=== PATIENT | female | born 1950 | race Caucasian/White ===

== ENCOUNTER 2021-04-26 11:41 | Outpatient (REF) | payer MEDICARE, MEDICAID, SELFPAY ==
[2021-04-26 12:09] LABS: Prothrombin Time 11.8 SEC (9.9-13.0)
[2021-04-26 13:13] LABS: Erythrocyte Sedimentation Rate 12 MM/HR (0-20)
[2021-04-27 03:52] LABS: Syphilis Screen Nonreactive (Nonreactive)
[2021-04-27 13:35] LABS: Lyme Abs Screen <0.90 index
[2021-04-28 12:51] LABS: Anti Nuclear Antibody Screen NEGATIVE (NEGATIVE)
== END 2021-04-26 11:42 | disposition home or self-care (01) ==
LOC: HO.LAB 11:41
PROVIDERS: PCP Physician Assistant; Visit Provider Psychiatry & Neurology Neurology
DX: G37.9 Demyelinating disease of central nervous system, unspecified (principal)
CPT/HCPCS: 36415; 85610; 85652; 86038; 86039; 86617; 86618; 86780

== ENCOUNTER 2022-02-08 16:24 | Emergency (ER) | payer MEDICARE, MEDICAID, SELFPAY ==
--- NOTE | ~2022-02-08 | XR_ITS ---
EXAMINATION: 1. LEFT WRIST. CLINICAL INFORMATION: Wrist pain. COMPARISON: None TECHNIQUE: 1. Left wrist. 4 views. FINDINGS: . No fracture. No dislocation. Joint spaces are normal. No soft tissue abnormality. XR/XR hand wrist LT IMPRESSION: Normal left wrist.
--- NOTE | ~2022-02-08 | XR_ITS ---
EXAMINATION: XR CHEST CLINICAL INFORMATION: Chest pain COMPARISON: None TECHNIQUE: Frontal view of the chest was obtained. FINDINGS: No significant abnormality is noted involving the heart, lungs, mediastinum, bony thorax or soft tissues. XR/XR chest 1V IMPRESSION: No acute cardiopulmonary findings.
--- NOTE | ~2022-02-08 | CT_ITS ---
EXAMINATION: CT HEAD WITHOUT CONTRAST CLINICAL INFORMATION: Left arm weakness. Pain. COMPARISON: None TECHNIQUE: Contiguous axial imaging was performed from the skull base to vertex without intravenous administration of contrast. Coronal and sagittal reformatted images are performed at CT scanner This CT examination was performed using dose optimization techniques as appropriate, variously including the following: *Automated exposure control *Adjustment of mA and/or kV according to patient size (this includes techniques or standardized protocols for targeted exams where dose is matched to indication/reason for exam; i.e. extremities or head) *Use of iterative reconstruction technique DLP: 622 mGy-cm FINDINGS: There is no evidence of acute intracranial hemorrhage or territorial infarction. No abnormal mass effect or midline shift is seen. Gandara to white matter differentiation is well preserved. No extra-axial fluid collections are identified. The ventricles are normal in size. There is no abnormal attenuation within the brain parenchyma. The osseous structures and soft tissues are normal. The mastoid air cells and visualized portions of the paranasal sinuses are well aerated. CT/CT head/brain wo con IMPRESSION: No acute intracranial pathology.
[2022-02-08 16:41] VITALS: BP 168/91; PULSE 90; RESP 16; TEMP 36.9; O2SAT 95; BMI 24.4
--- NOTE | 2022-02-08 16:53 | ECG_ITS ---
Test Reason : CX PAIN Blood Pressure : / mmHG Vent. Rate : 075 BPM Atrial Rate : 075 BPM P-R Int : 138 ms QRS Dur : 076 ms QT Int : 376 ms P-R-T Axes : 056 015 026 degrees QTc Int : 419 ms Normal sinus rhythm Nonspecific ST and T wave abnormality Abnormal ECG When compared with ECG of 01-DEC-2018 11:18, No significant change was found Referred By: Mayur Felix Electronically Signed By:RAMA JAY
--- NOTE | 2022-02-08 17:18 | ED_ITS ---
HPI - Chest Pain General Chief Complaint: Chest Pain Stated Complaint: chest pain l side numbness Time Seen by Provider: 02/08/22 16:53 Source: patient Mode of arrival: ambulatory Limitations: no limitations History of Present Illness HPI narrative: This is a 71-year-old female presenting to the emergency department with sudden- onset atraumatic left wrist pain that radiates up towards the shoulder into the chest and to her back. Patient tells me that the pain is so severe she cannot move her wrist or her shoulder. She reports that the chest pain is a constant pressure, localized to the left chest and rates it a 9/10. She reports that if she touches certain areas of her left upper extremity it causes pain to her entire arm and chest. Patient reports that this started suddenly after waking up around 05:00 and has not improved despite taking Tylenol. Patient tells me that about a week and half ago she woke up and her fingers were crossed and cramped together however that subsided on its own, she reached out to her PCP who told her to come in today as she may be having a stroke. Patient denies his tory of strokes, denies history of PE or DVT, and has no significant personal or family history of cardiac disease. Patient denies starting any new medications recently. She denies fevers, chills, nausea, vomiting, abdominal pain, shortness of breath, lower extremity pain or swelling, weakness. Patient does clarified that the reason she can not move her left upper extremity is mostly because of pain in not so much weakness. Related Data Home Medications Medication Instructions Recorded Confirmed acetaminophen 500 mg tablet 500 mg PO DAILY@14 02/08/22 02/08/22 amitriptyline 50 mg tablet 1 tab PO BEDTIME 02/08/22 02/08/22 Allergies Allergy/AdvReac Type Severity Reaction Status Date / Time amoxicillin [AMOXICILLIN] Allergy Unknown UNKNOWN Unverified 03/09/20 15:43 aspirin [ASA] Allergy Unknown UNKNOWN Unverified 03/09/20 15:43 fentanyl [FENTANYL] Allergy Unknown NAUSEA,TINGLING Unverified 03/09/20 15:43 LIPS () nitrofurantoin Allergy Unknown UNKNOWN Unverified 03/09/20 15:43 [NITROFURANTOIN] oxycodone Allergy Unknown vomiting Verified 03/02/19 00:00 varenicline [From CHANTIX] Allergy Unknown TACHYCARDIA Unverified 03/09/20 15:43 Review of Systems Review of Systems: Constitutional : No Weight loss, No Fever, No Chills, No Fatigue, No Malaise ENT/Mouth : No sore throat, No Rhinorrhea Eyes: No Eye Pain, No Swelling, No Redness Cardiovascular : No Chest Pain, No SOB, No Dyspnea on Exertion, No Orthopnea, No Edema, No Palpitations Respiratory : No Cough, No Sputum, No Wheezing Gastrointestinal : No Nausea, No Vomiting, No Diarrhea, No Constipation, No abdominal Pain, No Hematochezia, No Melena Genitourinary : No Dysuria, No Urinary Frequency, No Hematuria, Musculoskeletal : No joint pain, No Myalgias, No Joint Swelling Skin : No Skin Lesions, No rash Neuro : No Weakness, No Numbness, No Dizziness, No Headache Psych : No Anxiety/Panic, No Depression All other systems reviewed and are negative Yes all other systems are reviewed and are negative [facility] Past Medical History Attestation statement: The following information was validated with the patient. Source: old records reviewed and nursing notes reviewed Social History Social History Advance Directives: No Advance Directives Information Provided: Yes Physical Exam Vital Signs: Vital Signs: Last Vital Signs Temp 98.4 F 02/08/22 16:41 Pulse 90 02/08/22 16:41 Resp 16 02/08/22 16:41 BP 168/91 H 02/08/22 16:41 Pulse Ox 95 02/08/22 16:41 O2 Del Method 02/08/22 16:41 BMI result Body Mass Index 24.4 vss Appearance: Alert.? Oriented X3.? No acute distress.? Patient is speaking in full sentences, not slurring her speech. No dysarthria Head: Normocephalic, atraumatic, no step-offs or deformities. No facial droop. Eyes: Pupils equal, round and reactive to light.? Extraocular movements intact and pain-free. ENT: Pharynx normal.? Neck: Normal inspection.? Neck supple.? CVS: Normal heart rate and rhythm.? Pulses normal.? Respiratory: No respiratory distress.? Breath sounds normal.? Abdomen: Soft and nontender.? Skin: Skin warm and dry.? Normal skin color.? Normal skin turgor.? Extremities: No lower extremity edema.? No calf ttp. 5/5 strength to right upper and b/l lower extremities. Unable to accurately assess strength the left upper extremity as patient is in severe pain. Tells me she cannot shrug her left shoulder however is freely moving her elbow and wrist without difficulties. Normal right upper extremity. She is also moving all digits in the left hand. Patient has 2+ radial pulses equal bilateral. Normal hand rate and cost analyst bilaterally. Normal capillary is a bilateral upper extremity digits. Normal sensation. There is no upper extremity swelling noted or overlying skin changes. No wrist drop bilaterally. 2+ patellar reflexes equal bilateral to lower extremities Neuro: Oriented X 3.? No motor deficit.? No sensory deficit. CN 2-12 intact . Ambulating with steady gait. Normal [id number], [id number] Course Reevaluation(s) Reevaluation #1: CBC within normal limits. Chemistry with no acute electrolyte abnormalities requiring intervention. Troponin negative, EKG nonischemic. Ethanol negative. COVID negative. CT of the head and brain with no acute findings. Chest x-ray and x-ray of the hand pending at this time. Time: 18:47 Reevaluation #2: X-ray of the left wrist with no acute findings. Chest x-ray with no acute findings. Patient tells me that she thinks that this is her amitriptyline which was prescribed to her by her nerve doctor, she tells me she does not know her nerve doctor's name. She tells me that she knows our phone number. I explained to her that in the emergency department there is nothing that requires acute treatment her management. I told her that if she is concerned about her medications prescribed to her by her nerve doctor she can reach out to them she tells me she needs to speak to somebody about it today because she is very uncomfortable, I told her that most facilities have an on-call provider she can call and speak to however at this time I do not feel comfortable making medication changes to her chronic medications there is nothing to be done about this acutely in an emergency department. Patient requesting to leave and would not like further intervention however, her cardiac workup was benign, history and physical examination not consistent with PE. Unlikely that this is ACS. To know at time of discharge patient complaining of left arm pain however not complaining of chest pain or shortness of breath. At this time I feel comfortable discharge home. Time: 19:31 MDM - Chest Pain MDM Narrative Medical decision making narrative: [id number] 71-year-old female presenting to the emergency department with left wrist pain that radiates into her left shoulder, chest and. Reports it is severe pain which is causing her difficulties with moving left upper extremity. Physical examination significant for No lower extremity edema.? No calf ttp. 5/5 strength to right upper and b/l lower extremities. Unable to accurately assess strength the left upper extremity as patient is in severe pain. Tells me she cannot shrug her left shoulder however is freely moving her elbow and wrist without difficulties. Normal right upper extremity. She is also moving all digits in the left hand. Patient has 2+ radial pulses equal bilateral. Normal hand rate and cost analyst bilaterally. Normal capillary is a bilateral upper extremity digits. Normal sensation. There is no upper extremity swelling noted or overlying skin changes. No wrist drop bilaterally. 2+ patellar reflexes equal bilateral to lower extremities. Oriented X 3.? No motor deficit.? No sensory deficit. CN 2-12 intact . Ambulating with steady gait. Normal fjfwbg-nv-zoij, rkvu-zj-[id number]. NIH stroke scale - 0 Unlikley stroke, more likley musculoskeletal pain, nerve pain. Unlikely arterial or venous occlusion of the left upper extremity or DVT, there is no swelling appreciated, normal sensation and good pulses. Plan at this time is to obtain basic labs, EKG, chest x-ray, x-ray of the left wrist, urine, CONTRERAS. Medical Records Data Attestation: I reviewed the patient's medical records. Lab Data Attestation: I reviewed the patient's lab results. Result diagrams: 02/08/22 17:56 02/08/22 17:56 Labs: Lab Results 02/08/22 02/08/22 02/08/22 Range/Units 17:56 17:56 17:56 WBC 8.6 (4.8-10.8) X10*3/uL RBC 4.37 (4.20-5.50) X10*6/uL Hgb 13.3 (12.0-16.0) g/dl Hct 39.6 (37.0-47.0) % MCV 90.6 (80.0-98.0) fL MCH 30.4 (27.0-33.0) pg MCHC 33.6 (31.0-35.0) g/dl RDW 12.7 (11.0-16.0) % Plt Count 293 (160-400) X10*3/uL MPV 10.2 (9.4-12.3) fL Immature Gran % (Auto) 0.4 (0.0-0.4) % Neut % (Auto) 62.0 (45-73) % Lymph % (Auto) 25.2 (20-40) % Yell % (Auto) 6.4 (2-11) % Eos % (Auto) 5.3 H (0-4) % Baso % (Auto) 0.7 (0-2) % Lymph # (Auto) 2.2 (1.2-4.9) X10*3/uL Yell # (Auto) 0.6 (0.1-1.2) X10*3/uL Eos # (Auto) 0.5 H (0.0-0.4) X10*3/uL Baso # (Auto) 0.1 (0.0-0.2) X10*3/uL Abs Immat Gran (auto) 0.03 (0.00-0.03) X10*3/uL Absolute Neuts (auto) 5.3 (2.0-8.3) x10*3/uL Absolute Nucleated RBC 0.000 (0.0-0.012) X10*3/uL Nucleated RBC % (auto) 0.0 (0.0-0.2) /100WBC Sodium 140 (135-145) mmol/L Potassium 4.1 (3.3-5.1) mmol/L Chloride 105 (96-108) mmol/L Carbon Dioxide 25 (22-29) mmol/L Anion Gap 14 (12-20) BUN 16 (9-16) mg/dL Creatinine 0.78 (0.5-1.4) mg/dL Estim Creat Clear Calc 53.1 Estimated GFR > 60 Random Glucose 90 (60-115) mg/dL Calcium 9.6 (8.4-10.2) mg/dL Magnesium 2.1 (1.6-2.6) mg/dL Total Bilirubin 0.3 (0.0-1.0) mg/dL AST 18 (5-31) U/L ALT 13 (0-31) U/L Alkaline Phosphatase 96 (39-117) U/L Troponin I High Sens < 3.5 (<3.5-17.0) ng/L Total Protein 6.8 (6.5-8.0) g/dL Albumin 4.4 (3.5-5.0) g/dL Ethyl Alcohol < 10 mg/dL COVID-19 (GARY) (Negative) COVID-19 Clin Com 02/08/22 Range/Units 17:57 WBC (4.8-10.8) X10*3/uL RBC (4.20-5.50) X10*6/uL Hgb (12.0-16.0) g/dl Hct (37.0-47.0) % MCV (80.0-98.0) fL MCH (27.0-33.0) pg MCHC (31.0-35.0) g/dl RDW (11.0-16.0) % Plt Count (160-400) X10*3/uL MPV (9.4-12.3) fL Immature Gran % (Auto) (0.0-0.4) % Neut % (Auto) (45-73) % Lymph % (Auto) (20-40) % Yell % (Auto) (2-11) % Eos % (Auto) (0-4) % Baso % (Auto) (0-2) % Lymph # (Auto) (1.2-4.9) X10*3/uL Yell # (Auto) (0.1-1.2) X10*3/uL Eos # (Auto) (0.0-0.4) X10*3/uL Baso # (Auto) (0.0-0.2) X10*3/uL Abs Immat Gran (auto) (0.00-0.03) X10*3/uL Absolute Neuts (auto) (2.0-8.3) x10*3/uL Absolute Nucleated RBC (0.0-0.012) X10*3/uL Nucleated RBC % (auto) (0.0-0.2) /100WBC Sodium (135-145) mmol/L Potassium (3.3-5.1) mmol/L Chloride (96-108) mmol/L Carbon Dioxide (22-29) mmol/L Anion Gap (12-20) BUN (9-16) mg/dL Creatinine (0.5-1.4) mg/dL Estim Creat Clear Calc Estimated GFR Random Glucose (60-115) mg/dL Calcium (8.4-10.2) mg/dL Magnesium (1.6-2.6) mg/dL Total Bilirubin (0.0-1.0) mg/dL AST (5-31) U/L ALT (0-31) U/L Alkaline Phosphatase (39-117) U/L Troponin I High Sens (<3.5-17.0) ng/L Total Protein (6.5-8.0) g/dL Albumin (3.5-5.0) g/dL Ethyl Alcohol mg/dL COVID-19 ([facility]) Negative (Negative) COVID-19 Clin Com See Note Critical Care Time Critical Care Time Critical Care Time: No Discharge Plan Discharge Clinical Impression: Chest pain not due to acute coronary syndrome, Left upper arm pain Patient Disposition: Home, Self-Care Instructions: Chest Pain (ED), Chest Wall Pain (ED), Arm Pain (ED) Additional Instructions: Take your medications as prescribed. If you were prescribed antibiotics today, it is important that you take your medication to their entirety, do not skip any doses, do not finish them early. Follow-up with your primary care provider this week. Return to the emergency department with new or worsening symptoms. Such as fevers, chills, chest pain, shortness of breath, nausea, vomiting, dizziness, headache, vision changes, lethargy In case of emergency call 911 Please follow-up with your primary care provider and your med prescriber for amitriptyline Prescriptions: No Action amitriptyline 50 mg tablet 1 tab PO BEDTIME acetaminophen [Tylenol Ex Str Rapid Release] 500 mg Tablet 500 mg PO DAILY@14 Referrals: Physician,Unknown J [Primary Care Provider] - 2 days Stand Alone Forms: Against Medical Advice, Work/School Release
[2022-02-08 18:09] LABS: Basophils Absolute Auto 0.1 X10*3/uL (0.0-0.2); Basophils Percent Auto 0.7 % (0-2); Eosinophils Absolute Auto 0.5 X10*3/uL (0.0-0.4); Eosinophils Percent Auto 5.3 % (0-4); Hematocrit 39.6 % (37.0-47.0); Hemoglobin 13.3 g/dl (12.0-16.0); Imm Gran Abs Auto 0.03 X10*3/uL (0.00-0.03); Imm Gran Pct Auto 0.4 % (0.0-0.4); Lymphocytes Absolute Auto 2.2 X10*3/uL (1.2-4.9); Lymphocytes Percent Auto 25.2 % (20-40); MANUAL DIFF FLAG NO; Mean Corpuscular HGB Conc 33.6 g/dl (31.0-35.0); Mean Corpuscular Hemoglobin 30.4 pg (27.0-33.0); Mean Corpuscular Volume 90.6 fL (80.0-98.0); Mean Platelet Volume 10.2 fL (9.4-12.3); Monocytes Absolute Auto 0.6 X10*3/uL (0.1-1.2); Monocytes Percent Auto 6.4 % (2-11); Neutrophils Absolute Auto 5.3 x10*3/uL (2.0-8.3); Platelet Count 293 X10*3/uL (160-400); Red Blood Count 4.37 X10*6/uL (4.20-5.50); Red Cell Distribution Width 12.7 % (11.0-16.0); White Blood Count 8.6 X10*3/uL (4.8-10.8)
[2022-02-08 18:22] LABS: Alanine Aminotransferase 13 U/L (0-31); Albumin Level 4.4 g/dL (3.5-5.0); Alkaline Phosphatase 96 U/L (39-117); Anion Gap 14 (12-20); Aspartate Amino Transferase 18 U/L (5-31); Bilirubin Total 0.3 mg/dL (0.0-1.0); Blood Urea Nitrogen 16 mg/dL (9-16); Calcium 9.6 mg/dL (8.4-10.2); Carbon Dioxide 25 mmol/L (22-29); Chloride 105 mmol/L (96-108); Creatinine Clr Calc Pharmacy 53.1; Estimated Glomerular Filt Rate > 60; Ethanol < 10 mg/dL; Glucose Random 90 mg/dL (60-115); Magnesium 2.1 mg/dL (1.6-2.6); Potassium 4.1 mmol/L (3.3-5.1); Sodium 140 mmol/L (135-145); Total Protein 6.8 g/dL (6.5-8.0)
[2022-02-08 18:25] LABS: Troponin-I High Sensitivity < 3.5 ng/L (<3.5-17.0)
[2022-02-08 18:28] LABS: COVID-19 Test Negative (Negative)
--- NOTE | 2022-02-08 18:35 | PHA.MEDREC ---
Pharmacy Consult ? Medication Reconciliation Pharmacy has completed the medication reconciliation. Pt used to take 10 mg amitripyline and was able to take the white brand of pills but not the blue brand tablets. In November she was increased to 50 mg which are reddish brown. She questions if her symptoms are from this dose jump. She also takes vitamin C & D but did not know the doses to put on her list.
--- NOTE | 2022-02-08 19:00 | PC.NURSE ---
RN assumed care of patient at this time.
--- NOTE | 2022-02-08 19:15 | PC.NURSE ---
Patient requesting to leave at this time. Provider made aware. RN informed patient that we are waiting on a few results if she could wait a few. RN offered IV morphine but patient refused requesting Tylenol 3. Provider made aware.
--- NOTE | 2022-02-08 20:17 | PC.NURSE ---
Pt aggressive during discharge. fucking thanks for nothing . Verbalized d/c and encouraged to follow up with pcp in am. Pt ambulated to exit with steady gait. Skin p/w/d. airway patent.
== END 2022-02-08 20:18 | disposition home or self-care (01) ==
PROVIDERS: Physician Assistant; Emergency Provider Emergency Medicine
DX: R07.89 Other chest pain (principal); M62.81 Muscle weakness (generalized); R51.9 Headache, unspecified; M79.602 Pain in left arm; M25.532 Pain in left wrist; Z20.822 Contact with and (suspected) exposure to COVID-19; Z79.899 Other long term (current) drug therapy
CPT/HCPCS: 70450; 71045; 73110; 73130; 80053; 82077; 82550; 83735; 84484; 85025; 87635; 93005; 99283; 99284

== ENCOUNTER 2023-08-15 09:57 | Outpatient (REF) | payer MEDICARE, MEDICAID, SELFPAY ==
--- NOTE | ~2023-08-15 | MM_ITS ---
EXAMINATION: MM SCREENING DIGITAL BREAST TOMOSYNTHESIS, BILATERAL CLINICAL INFORMATION: Screening. Asymptomatic. COMPARISON: Mammography: This study is compared with prior exams dating back to 2009. TECHNIQUE: Digital breast tomosynthesis is performed in both the craniocaudal and mediolateral oblique views along with computer-aided detection (CAD). Synthesized 2D images are generated from the tomosynthesis. FINDINGS: There are scattered areas of fibroglandular density (ACR BI-RADS breast composition Category b). There are no significant masses, abnormal calcifications, or other abnormalities. MM/MM tomosynthesis screening BI IMPRESSION: No mammographic evidence of malignancy. ASSESSMENT: BI-RADS BI-RADS 1 - Negative RECOMMENDATION: Routine annual mammography screening. 1 year F/U This examination should not preclude the clinical evaluation of a suspicious palpable abnormality. This patient's information was entered into a reminder system with a target due date for their next mammogram.
== END 2023-08-15 09:58 | disposition home or self-care (01) ==
LOC: HO.MAMMO 09:57
PROVIDERS: PCP Student in an Organized Health Care Education/Training Program; Visit Provider Student in an Organized Health Care Education/Training Program
DX: Z12.31 Encounter for screening mammogram for malignant neoplasm of breast (principal)
CPT/HCPCS: 77063; 77067

== ENCOUNTER → 2023-08-15 10:30 | Outpatient (BNV) | payer MEDICARE, MEDICAID, SELFPAY | PROVIDERS: PCP Student in an Organized Health Care Education/Training Program; Visit Provider Radiology Diagnostic Radiology | DX: Z12.31 Encounter for screening mammogram for malignant neoplasm of breast (principal) | CPT/HCPCS: 77063; 77067 ==

== ENCOUNTER 2024-09-10 11:56 | Outpatient (REF) | payer MEDICARE, MEDICAID, SELFPAY ==
--- OUTSIDE RECORDS SUMMARY | 2024-09-10 14:33 | XMS_ITS | Clinical Summary ---
Author Organization [facility] Address [address] [place] [address] Phone Care Team Providers Care Baccarat Manager Name Role Phone Olya Rosen MD Primary Care Provider [phone] Allergies Active Allergy Reactions Criticality Noted Date Comments Amoxicillin 12/29/2019 Aspirin Dermatitis,Rash 12/29/2019 Duloxetine 03/25/2024 Duloxetine Hcl Nausea And Vomiting 12/31/2019 Fentanyl 12/29/2019 Nitrofurantoin Monohyd/M-Cryst 12/28 Medications calcium carbonate-cholec alciferol (Calcium 500 + D) 500 mg-10 mcg (400 unit) per tablet Take 1 Tablet by mouth 2 times daily. 08/21/2023 Active turmeric root extract 500 mg capsule Take 400 mg by mouth 2 times daily. Active ascorbic acid (VITAMIN C) 250 MG chewable tablet Take 1 Tablet by mouth 2 times daily. Active pantoprazole (PROTONIX) 40 mg EC tablet Take 1 tablet (40 mg total) by mouth 1 (one) time each day. Do not crush, chew, or split. 90 each 1 08/20/2024 Active solifenacin (VESICARE) 10 mg tablet 08/26/2024 Active solifenacin (VESICARE) 5 mg tablet Take 1 tablet (5 mg total) by mouth 1 (one) time each day. 12/28/2023 Active tiZANidine (ZANAFLEX) 4 mg tablet Take 1 tablet (4 mg total) by mouth 2 (two) times a day. 01/27/2024 Active Active Problems Problem Noted Date Diagnosed Date Urinary incontinence 08/21/2023 Low vitamin D level 07/29/2022 Prediabetes 07/29/2022 Pain in left arm 03/07/2022 Overview (03/25/2024): Last Assessment & Plan: Patient already diagnosed with fibromyalgia. She already following with Dr. Roman Currently on amitriptyline Plan Continue same dose of amitriptyline. Thoracic neuralgia 07/10/2020 Overview (03/25/2024): Following with neuro Dr. Paulino at [facility] Last Assessment & Plan: Patient already diagnosed with thoracic neuralgia She is following with Dr. Paulino, last visit yesterday. Is getting amitriptyline. Plan continue the same dose of amitriptyline. Vitamin D insufficiency 03/26/2020 Pelvic pressure in female 03/20/2020 Overview (03/25/2024): Last Assessment & Plan: Recommended she have urine studies and Audio Video Technician ultrasound, although the Audio Video Technician organs appeared normal on CT and does not seem to be low enough to be Audio Video Technician in etiology. She will schedule her US and stop at lab for urine today. Osteoporosis 03/13/2020 Closed wedge compression fra cture of eighth thoracic vertebra 03/05/2020 Overview (03/25/2024): Xray 02/2020 Cervical disc disease 12/31/2019 Chronic abdominal pain 12/31/2019 Chronic pain disorder 12/31/2019 Diverticulosis 12/31/2019 Fibromyalgia 12/31/2019 GERD (gastroesophageal reflux disease) 0 Hypercholesterolemia 12/31/2019 Positive colorectal cancer screening using Colog uard test 12/31/2019 Tobacco use disorder 12/31/2019 Encounters Date Type Department Care Team Description 08/27/2024 2:40 PM EST Consult Gastroenterology [facility] [address] [place] [phone] Marcia Whyte NP Dyspepsia (Primary Dx); Tobacco use disorder; Chronic right upper quadrant pain; History of adenomatous polyp of colon 08/27/[address] [facility] [address] [place] [phone] Marcia Whyte NP 08/20/2024 10:00 AM EST Office Visit Internal Medicine - [facility] [address] [place] [address] Olya Rosen MD Routine general medical examination at a health care facility (Primary Dx); Medicare annual wellness visit, subsequent; Osteoporosis, unspecified osteoporosis type, unspecified pathological fracture presence; Hypercholesterolemia; Chronic abdominal pain; Fibromyalgia; Low vitamin D level; Prediabetes; Tobacco use disorder; Gastroesophageal reflux disease, unspecified whether esophagitis present; H. pylori infection; Other fatigue; Vitamin D deficiency; UTI symptoms from Last 3 Months Immunizations Name Administration Dates Next Due Pfizer SARS-CoV-2 COVID-19, mRNA, LNP-S, preservative free 11/01/2020,10/04/2020 Surgical History Surgery Date Site/Laterality Comments CHOLECYSTECTOMY 12/30/2018 PROCEDURE: LAPAROSCOPY, CHOLECYSTECTOMY NECK SURGERY PROCEDURE: HISTORICAL NECK SURGERY; COMMENT: per pt report, 1990s for cervical disc Family History Medical History Relation Name Comments Other: blood disorder Father hyperc oagulation Colon cancer Maternal Grandmother Colon cancer Mother metastatic Other: blood disorder Sister 1 hyperc oagulation 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 Sister 2 Relation Name Status Comments Father Alive Maternal Grandmother Mother Sister 1 Sister 2 Social History Tobacco Use Types Packs/Day Years Used Date Smoking Tobacco: Some Days Cigarettes Smokeless Tobacco: Current Alcohol Use Standard Drinks/Week Comments No 0 (1 standard drink = 0.6 oz pur e alcohol) Comments Unknown Sex and Gender Information Value Date Recorded Sex Assigned at Not on file Legal Sex Female 11:22 AM EST Gender Identity Not on file Sexual Orientation Not on file Obstetrics History Last Filed Vital Signs Vital Sign Reading Time Taken Comments Blood Pressure 118/75 08/27/2024 2:24 PM EST Pulse 97 08/20/2024 10:33 AM EST Temperature - - Respiratory Rate 14 05/04/2024 3:16 PM EST Oxygen Saturation 98% 08/20/2024 10:33 AM EST Inhaled Oxygen Concentration - - Weight 63 kg (139 lb) 08/27/2024 2:24 PM EST Height 160 cm (5' 3 ) 08/27/2024 2:24 PM EST Body Mass Index 24.62 08/27/2024 2:24 PM EST Plan of Treatment Upcoming Encounters Date Type Department Care Team (Late st Contact Info) Description 09/16/2024 8:45 AM EDT Office Visit Urogynecology [address] [phone] Karli Sinha MD [address] [facility] [address] [place] [address] 02/17/2025 9:00 AM EDT Office Visit Internal Medicine - [facility] [address] [place] [address] Olya Rosen MD [address] [facility] [address] [place] [address] Health Maintenance Due Date Last Done Comments DTaP,Tdap,and Td Vaccines (1 - Tdap) 09/10/1967 Pneumococcal Vaccine: 50+ Years (1 of 2 - PCV) 09/10/1967 Zoster Vaccines (1 of 2) 1998 Hepatitis C Screening 06/01/2022 Colorectal Cancer Screening: Colonoscopy 01/30/2023 01/31/2020 RSV Immunization Patients 60 + Years Old (1 - 1-dose 75+ series) 09/10/2023 COVID-19 Vaccine (2023-2 5 season) 2024 11/01/2020, 10/04/2020 Influenza Vaccine (#1) 2024 Lung Cancer Screening (Low Dose CT) 11/04/2024 11/05/2023 Depression Screening 08/20/2025 08/20/2024, 08/21/2023 Falls Risk Assessment 08/20/2025 08/20/2024 , 08/21/2023 Medicare Annual Wellness Visit 08/20/2025 08/20/2024 Social Influencers of Health Screening 08/20/2025 08/20/2024 Cholesterol Screening (Lipid Panel) 08/20/2029 08/20/2024, 08/21/2023 Osteoporosis Screening (Bone Density Screening) 03/07/2030 03/07/2020 HIB Vaccines Aged Out No longer eligi ble based on patient's age to complete this topic HPV Vaccines Aged Out No longer eligi ble based on patient's age to complete this topic Hepatitis A Vaccines Aged Out No long er eligible based on patient's age to complete this topic Hepatitis B Vaccines Aged Out No long er eligible based on patient's age to complete this topic IPV Vaccines Aged Out No longer eligi ble based on patient's age to complete this topic MMR Vaccines Aged Out No longer eligi ble based on patient's age to complete this topic Meningococcal ACWY Vaccine Aged Out N o longer eligible based on patient's age to complete this topic Meningococcal B Vacine Aged Out No lo nger eligible based on patient's age to complete this topic RSV Immunization Patients Under 20 months Aged Out No longer eligible b ased on patient's age to complete this topic Varicella Vaccines Aged Out No longer eligible based on patient's age to complete this topic Procedures Procedure Name Priority Date/Time Associated Diagnosis Comments HELICOBACTER PYLORI ANTIGEN, STOOL Routine 08/27/2024 11:47 AM EST H. pylori infection GANDARA URINE CULTURE TUBE Routine 08/20/2024 12:44 PM EST UTI symptoms URINALYSIS WITH REFLEX MICROSCOPIC AND CULTURE Routine 08/20/2024 11:41 AM EST UTI symptoms CBC WITH AUTO DIFFERENTIAL Routine 08/20/2024 11:41 AM EST Medicare annual wellness visit, subsequent Other fatigue URINALYSIS WITH REFLEX MICROSCOPIC AND CULTURE Routine 08/20/2024 11:41 AM EST UTI symptoms THYROID STIMULATING HORMONE WITH REFLEX TO FREE T4 AND FREE T3 Routine 08/20/2024 11:41 AM EST Medicare annual wellness visit, subsequent Other fatigue VITAMIN D 25 HYDROXY Routine 08/20/2024 11:41 AM EST Medicare annual wellness visit, subsequent Vitamin D deficiency LIPID PANEL WITH REFLEX TO DIRECT LDL Routine 08/20/2024 11:41 AM EST Medicare annual wellness visit, subsequent Hypercholesterolemi a COMPREHENSIVE METABOLIC PANEL Routine 08/20/2024 11:41 AM EST Medicare annual wellness visit, subsequent VITAMIN B12 Routine 08/20/2024 11:41 AM EST Medicare annual wellness visit, subsequent Other fatigue HEMOGLOBIN A1C Routine 08/20/2024 11:41 AM EST Medicare annual wellness visit, subsequent Prediabetes CBC AND DIFFERENTIAL Routine 08/20/2024 11:41 AM EST Medicare annual wellness visit, subsequent Other fatigue CT LUNG SCREENING LOW DOSE Routine 11/05/2023 2:48 PM EDT Encounter for screening for malignant neoplasm of respiratory organs DEPRESSION SCREENING Routine 08/21/2023 FALLS RISK ASSESSMENT Routine 08/21/2023 DXA BONE DENSITY STUDY 1+ SITS AXIAL SKEL Routine 03/07/2020 3:04 PM EDT Wedge compression fracture of T7-T8 vertebra, initial encounter for closed fracture ([facility]) COLONOSCOPY Routine 01/31/2020 from Last 3 Months or Most Recently Relevant to Health Maintenance Results * Helicobacter pylori antigen, stool (08/27/2024 11:47 AM EST) Helicobacter Pylori Ag Not detected Not detected 08/31/2024 2:37 PM EDT [facility] Comment: This test was performed at [facility] using a chemiluminescent immunoassay intended for the qualitative determination of helicobacter pylori (H. pylori) antigen in human stool. The test is an aid in the diagnosis of patients suspected of H. pylori infection and to measure post therapy response from patients. Assay results should be used in conjunction with other clinical and laboratory data to assist the clinician in making individual patient management decisions. A negative test result does not preclude the possibility of the presence of H. pylori antigen in the specimen, which may occur if the level of antigen is below the detection limit of the test. Antimicrobials, proton pump inhibitors, and bismuth preparations are known to suppress H. pylori and, if ingested, may give a false negative result. In these cases a new fecal sample should be collected and tested 14 days after treatment has stopped. Positive results from patients that have used antibiotics, PPIs, or bismuth compounds in the 14 days prior to fecal sample collection are still considered accurate. This assay has not been evaluated in a pediatric population. This test has been approved as an in vitro diagnostic by the [place] Food and Drug Administration. Test performed at [facility], [address] , [place], [place] ??[address] ? [phone] Michell Hadley MD, PhD - Editorial Assistant Stool Rectum structure / Unknown Non-blood Collection / Unknown 08/27/2024 11:47 AM EST 08/27/2024 11:47 AM EST Olya Rosen MD LAB BODY FLUIDS AND STOOLS ORDER GALO Final Result Performing Organization Address City/[facility]/ZIP Co de Phone Number [facility] [address] [place] [address] * Gandara urine culture tube (08/20/2024 12:44 PM EST) Pathologist [facility] Extra Tube Hold for add-ons. 08/20/2024 3:02 PM EST [facility] Comment:Auto resulted. Urine Urine specimen obtained by clean catch procedure / Unknown Non-blood Collection / Unknown 08/20/2024 12:44 PM EST 08/20/2024 12:44 PM EST Olya Rosen MD LAB URINE ORDERABLES Final Resul t Performing Organization Address City/[facility]/ZIP Co de Phone Number [facility] [address] [place] [address], [place] [phone] * Urinalysis with reflex microscopic and culture (08/20/2024 11:41 AM EST) Pathologist [facility] Specific Crawford Urine 1.015 1.003 - 1.030 LAB URINALYSIS - AUTOMATED METHOD 08/20/2024 2:22 PM EST [facility] pH, Urine 7.0 5.0 - 8.0 pH LAB URINALYSIS - AUTOMATED METHOD 08/20/2024 2:22 PM [facility] Leukocytes, Urine Negative Negative LAB URINALYSIS - AUTOMATED METHOD 08/20/2024 2:22 PM [facility] Nitrite, Urine Negative Negative LAB URINALYSIS - AUTOMATED METHOD 08/20/2024 2:22 PM [facility] Protein, Urine Negative <=Trace mg/dL LAB URINALYSIS - AUTOMATED METHOD 08/20/2024 2:22 PM [facility] Glucose, Urine Negative Negative mg/dL LAB URINALYSIS - AUTOMATED METHOD 08/20/2024 2:22 PM [facility] Ketones, Urine Negative Negative mg/dL LAB URINALYSIS - AUTOMATED METHOD 08/20/2024 2:22 PM [facility] Urobilinogen, Urine 0.2 0.2 - 1.0 mg/dL LAB URINALYSIS - AUTOMATED METHOD 08/20/2024 2:22 PM [facility] Bilirubin, Urine Negative Negative LAB URINALYSIS - AUTOMATED METHOD 08/20/2024 2:22 PM [facility] Blood, Urine Negative Negative LAB URINALYSIS - AUTOMATED METHOD 08/20/2024 2:22 PM [facility] Urine Urine specimen obtained by clean catch procedure / Unknown Non-blood Collection / Unknown 08/20/2024 11:41 AM EST 08/20/2024 11:41 AM EST us Olya Rosen MD LAB URINE ORDERABLES Final Resul t [facility] [address] [place] [address], * Thyroid stimulating hormone with reflex to free t4 and free t3 (08/20/2024 11:41 AM EST) TSH 2.40 0.40 - 4.00 mcIU/mL LAB CHEMISTRY METHOD 08/20/2024 7:46 PM EST [facility] Blood Venous blood specimen / Unknown Venipuncture / Unknown 08/20/2024 11:41 AM EST 08/20/2024 11:41 AM EST Olya Rosen MD LAB BLOOD ORDERABLES Final Resul t Performing Organization Address City/[facility]/ZIP Co de Phone Number [facility] [address] [place] [address], [place] [phone] * (ABNORMAL) Lipid panel with reflex to direct LDL (08/20/2024 11:41 AM EST) Cholesterol 254(H) 0 - 200 mg/dL LAB CHEMISTRY METHOD 08/20/2024 8:07 PM [facility] Triglycerides 295(H) 0 - 150 mg/dL LAB CHEMISTRY METHOD 08/20/2024 8:07 PM [facility] HDL 44 >=40 mg/dL LAB CHEMISTRY METHOD 08/20/2024 8:07 PM [facility] LDL Calculated 151(H) 0 - 100 mg/dL LAB CHEMISTRY METHOD 08/20/2024 8:07 PM [facility] VLDL Cholesterol Lit 59 mg/dL LAB CHEMISTRY METHOD 08/20/2024 8:07 PM [facility] Non HDL Chol. (LDL+VLDL) 210(H) <145 mg/dL LAB CHEMISTRY METHOD 08/20/2024 8:07 PM [facility] Chol/HDL Ratio 5.8(H) 0.0 - 4.4 LAB CHEMISTRY METHOD 08/20/2024 8:07 PM [facility] Blood Venous blood specimen / Unknown Venipuncture / Unknown 08/20/2024 11:41 AM EST 08/20/2024 11:41 AM EST Olya Rosen MD LAB BLOOD ORDERABLES Final Resul t [facility] [address] [place] [address], * (ABNORMAL) CBC auto differential (08/20/2024 11:41 AM EST) [facility] Signature WBC 11.0(H) 4.8 - 10.8 K/mcL LAB HEMETOLOGY METHOD 08/20/2024 2:46 PM EST [facility] RBC 4.80 3.80 - 4.80 M/mcL LAB HEMETOLOGY METHOD 08/20/2024 2:46 PM EST [facility] Hemoglobin 14.6 11.5 - 16.0 g/dL LAB HEMETOLOGY METHOD 08/20/2024 2:46 PM [facility] Hematocrit 46.4 35.0 - 47.0 % LAB HEMETOLOGY METHOD 08/20/2024 2:46 PM [facility] MCV 96.1 79.0 - 98.0 FL LAB HEMETOLOGY METHOD 08/20/2024 2:46 PM [facility] MCH 30.2 27.0 - 32.0 pcg LAB HEMETOLOGY METHOD 08/20/2024 2:46 PM [facility] MCHC 31.5(L) 32.0 - 37.0 g/dL LAB HEMETOLOGY METHOD 08/20/2024 2:46 PM EST [facility] RDW 13.1 11.0 - 15.0 % LAB HEMETOLOGY METHOD 08/20/2024 2:46 PM [facility] Platelets 327 130 - 400 K/mcL LAB HEMETOLOGY METHOD 08/20/2024 2:46 PM [facility] MPV 11.0 7.0 - 11.0 FL LAB HEMETOLOGY METHOD 08/20/2024 2:46 PM [facility] NRBC 0.0 <1.0 % LAB HEMETOLOGY METHOD 08/20/2024 2:46 PM [facility] NRBC Absolute 0.00 <0.10 K/mcL LAB HEMETOLOGY METHOD 08/20/2024 2:46 PM [facility] Neutrophils Relative 63.8 % LAB HEMETOLOGY METHOD 08/20/2024 2:46 PM [facility] Lymphocytes Relative 25.0 % LAB HEMETOLOGY METHOD 08/20/2024 2:46 PM [facility] Monocytes Relative 6.2 % LAB HEMETOLOGY METHOD 08/20/2024 2:46 PM [facility] Eosinophils Relative 3.8 % LAB HEMETOLOGY METHOD 08/20/2024 2:46 PM [facility] Basophils Relative 0.5 % LAB HEMETOLOGY METHOD 08/20/2024 2:46 PM [facility] Immature Granulocytes Relative 0.7 % LAB HEMETOLOGY METHOD 08/20/2024 2:46 PM [facility] Neutrophils Absolute 7.00 1.50 - 7.00 K/mcL LAB HEMETOLOGY METHOD 08/20/2024 2:46 PM [facility] Lymphocytes Absolute 2.74 1.00 - 5.00 K/mcL LAB HEMETOLOGY METHOD 08/20/2024 2:46 PM [facility] Monocytes Absolute 0.68 0.20 - 1.00 K/mcL LAB HEMETOLOGY METHOD 08/20/2024 2:46 PM [facility] Eosinophils Absolute 0.42 0.00 - 0.50 K/mcL LAB HEMETOLOGY METHOD 08/20/2024 2:46 PM [facility] Basophils Absolute 0.05 0.00 - 0.20 K/mcL LAB HEMETOLOGY METHOD 08/20/2024 2:46 PM [facility] Immature Granulocytes Absolute 0.08(H) 0.00 - 0.03 K/mcL LAB HEMETOLOGY METHOD 08/20/2024 2:46 PM EST [facility] Blood Venous blood specimen / Unknown Venipuncture / Unknown 08/20/2024 11:41 AM EST 08/20/2024 11:41 AM EST Olya Rosen MD LAB BLOOD ORDERABLES Final Resul t Performing Organization Address City/[facility]/ZIP Co de Phone Number [facility] [address] [place] [address], [place] [phone] * (ABNORMAL) Vitamin D 25 hydroxy (08/20/2024 11:41 AM EST) Vit D, 25-Hydroxy 28.0(L) 30.0 - 80.0 ng/mL LAB CHEMISTRY METHOD 08/20/2024 7:46 PM EST [facility] Blood Venous blood specimen / Unknown Venipuncture / Unknown 08/20/2024 11:41 AM EST 08/20/2024 11:41 AM EST us Olya Rosen MD LAB BLOOD ORDERABLES Final Resul t Performing Organization Address [facility] Co de Phone Number [facility] [address] [place] [address], [place] [phone] * Hemoglobin A1c (08/20/2024 11:41 AM EST) Pathologist [facility] Hemoglobin A1C 6.3 <6.5 % LAB CHEMISTRY METHOD 08/23/2024 9:36 PM EST [facility] Mean Bld Glu Estim. 134 mg/dL LAB CHEMISTRY METHOD 08/23/2024 9:36 PM EST [facility] Blood Venous blood specimen / Unknown Venipuncture / Unknown 08/20/2024 11:41 AM EST 08/20/2024 11:41 AM EST us Olya Rosen MD LAB BLOOD ORDERABLES Final Resul t [facility] [address] [place] [address], [place] [phone] * Vitamin B12 (08/20/2024 11:41 AM EST) [facility] Vitamin B-12 546 250 - 900 pcg/mL LAB CHEMISTRY METHOD 08/20/2024 8:07 PM [facility] Blood Venous blood specimen / Unknown Venipuncture / Unknown 08/20/2024 11:41 AM EST 08/20/2024 11:41 AM EST Olya Rosen MD LAB BLOOD ORDERABLES Final Resul t Performing Organization Address [facility] Co de Phone Number [facility] [address] [place] [address], [place] [phone] * (ABNORMAL) Comprehensive metabolic panel (08/20/2024 11:41 AM EST) [facility] Sodium 139 133 - 145 mmol/L LAB CHEMISTRY METHOD 08/20/2024 8:07 PM [facility] Potassium 4.3 3.5 - 5.5 mmol/L LAB CHEMISTRY METHOD 08/20/2024 8:07 PM [facility] Chloride 103 96 - 110 mmol/L LAB CHEMISTRY METHOD 08/20/2024 8:07 PM [facility] CO2 29 21 - 32 mmol/L LAB CHEMISTRY METHOD 08/20/2024 8:07 PM [facility] Anion Gap 7 3 - 11 LAB CHEMISTRY METHOD 08/20/2024 8:07 PM [facility] Glucose 132(H) 70 - 100 mg/dL LAB CHEMISTRY METHOD 08/20/2024 8:07 PM [facility] BUN 18 5 - 25 mg/dL LAB CHEMISTRY METHOD 08/20/2024 8:07 PM [facility] Creatinine 0.82 0.50 - 1.10 mg/dL LAB CHEMISTRY METHOD 08/20/2024 8:07 PM [facility] eGFR 75 >=60 mL/min/1. 73m2 LAB CHEMISTRY METHOD 08/20/2024 8:07 PM [facility] Comment:Calculation based on the??Chronic Kidney Disease Epidemiology Collaboration (CKD-EPI) equation refit??without adjustment for race. BUN/Creatinine Ratio 22.0 LAB CHEMISTRY METHOD 08/20/2024 8:07 PM [facility] Calcium 10.1 8.5 - 10.5 mg/dL LAB CHEMISTRY METHOD 08/20/2024 8:07 PM [facility] AST (SGOT) 31 10 - 42 unit/L LAB CHEMISTRY METHOD 08/20/2024 8:07 PM [facility] ALT (SGPT) 44 10 - 60 unit/L LAB CHEMISTRY METHOD 08/20/2024 8:07 PM [facility] Alkaline Phosphatase 103 42 - 121 unit/L LAB CHEMISTRY METHOD 08/20/2024 8:07 PM [facility] Total Protein 7.2 6.0 - 8.0 g/dL LAB CHEMISTRY METHOD 08/20/2024 8:07 PM [facility] Albumin 4.2 3.2 - 5.0 g/dL LAB CHEMISTRY METHOD 08/20/2024 8:07 PM [facility] Total Bilirubin 0.5 0.0 - 1.4 mg/dL LAB CHEMISTRY METHOD 08/20/2024 8:07 PM [facility] Blood Venous blood specimen / Unknown Venipuncture / Unknown 08/20/2024 11:41 AM EST 08/20/2024 11:41 AM EST us Olya Rosen MD LAB BLOOD ORDERABLES Final Resul t [facility] [address] [place] [address], * CT LUNG SCREENING LOW DOSE (11/05/2023 2:48 PM EDT) Anatomical Region Laterality Modality Computed Tomogra phy 11/05/2023 11:2 5 AM EDT Narrative 11/05/2023 2:48 PM EDT [facility] Diagnostic Imaging Department [address] [place] [id number] Patient: ??RAMONARON ?/Age/Sex: 1950 - 73 - F Unit#: ??[id number] ? Location/Status: ??SPDICATLS/REG CLI ? Mnemonic/Ordering Site: ??CTLUNGLD/SPCT Ordering Physician: ??CHRISTIAN FERRARA MD CT Lung Screening Low Dose - 11/05/23 - 1133 Report Status:Signed PROCEDURE: Chest CT INDICATION: Low dose lung cancer screening, current smoker, 60 pack year smoking history. TECHNIQUE: Chest CT without contrast. Multi planar reformats were created and interpreted. The examination was performed utilizing dose reduction techniques. Total DLP 180 COMPARISON: ??No priors available. FINDINGS: LUNGS/PLEURA: Central airways are patent. ??Emphysema. ??3 mm nodule in the right middle lobe (series 4 image 74). ??4 mm nodule in the right lower lobe (series 4 image 97). ??Scattered smaller nodules throughout the lungs without suspicious nodule. ??No pleural effusion or pneumothorax. MEDIASTINUM: Thyroid gland is unremarkable. No mediastinal or hilar lymphadenopathy. Cardiac chambers are normal in size. No pericardial effusion. Mild coronary calcifications. ??Esophagus is normal. CHEST WALL: No axillary lymphadenopathy or superficial hematoma. UPPER ABDOMEN:Cholecystectomy. BONES: No acute fracture. Scattered degenerative changes seen throughout the bones. IMPRESSION: No suspicious pulmonary nodules. ??Lung RADS 2-benign. ??Recommend continued screening with low-dose chest CT in 12 months. Dictating Physician: ??ZACHARY CONNOLLY MD Electronically Signed by: ??ZACHARY CONNOLLY MD Dic Date/Time: ??11/05/23 1428 Sign date/Time: ??11/05/23 1447 Procedure Note Zachary Connolly MD - 02/09/2024 [facility] Diagnostic Imaging Department [address] [place] [address] Patient: RON GREENE /Age/Sex: 1950 - 73 - F Unit#: [id number] Location/Status: [facility] Mnemonic/Ordering Site: [facility] Ordering Physician: CHRISTIAN FERRARA MD CT Lung Screening Low Dose - 11/05/23 - 1133 Report Status:Signed PROCEDURE: Chest CT INDICATION: Low dose lung cancer screening, current smoker, 60 pack year smoking history. TECHNIQUE: Chest CT without contrast. Multi planar reformats were createdand interpreted. The examination was performed utilizing dose reductiontechniques. Total DLP 180 COMPARISON: No priors available. FINDINGS: LUNGS/PLEURA: Central airways are patent. Emphysema. 3 mm nodule in theright middle lobe (series 4 image 74). 4 mm nodule in the right lower lobe(series 4 image 97). Scattered smaller nodules throughout the lungs withoutsuspicious nodule. No pleural effusion or pneumothorax. MEDIASTINUM: Thyroid gland is unremarkable. No mediastinal or hilar lymphadenopathy. Cardiac chambers are normal in size. No pericardialeffusion. Mild coronary calcifications. Esophagus is normal. CHEST WALL: No axillary lymphadenopathy or superficial hematoma. UPPER ABDOMEN:Cholecystectomy. BONES: No acute fracture. Scattered degenerative changes seen throughoutthe bones. IMPRESSION: No suspicious pulmonary nodules. Lung RADS 2-benign. Recommendcontinued screening with low-dose chest CT in 12 months. Dictating Physician: ZACHARY CONNOLLY MD Electronically Signed by: ZACHARY CONNOLLY MD Dic Date/Time: 11/05/23 1428 Sign date/Time: 11/05/23 1448 Christian Ferrara MD IMG CT PROCEDURES Final Result * Falls Risk Assessment (08/21/2023) Pathologist [facility] Falls Risk Assessment abstracted Historical Provider HEALTH MAINTENANCE Final Result * Depression Screening (08/21/2023) Pathologist [facility] Depression Screening abstracted Historical Provider HEALTH MAINTENANCE Final Result * DXA BONE DENSITY STUDY 1+ [facility] (03/07/2020 3:04 PM EDT) Anatomical Region Laterality Modality Bone Densitometr y 03/06/2020 12:2 7 PM EDT Narrative 03/07/2020 5:20 PM EDT BONE DENSITY (DEXA) ? Lumbar Spine T-score is 0.6. ?? (SD relative to 20-29 y/o adult) Z-score is 2.8. ??(SD relative to age matched peers) This is considered normal by WHO criteria. Left Hip T-score is -1.8. Z-score is 0.1. This is considered osteopenia by WHO criteria. Lateral view of the spine shows mild wedging of the T8 vertebral body IMPRESSION: In the absence of trauma, compression fracture of a vertebral body is considered presumptive evidence of osteoporosis. The [facility] Department of Internal Medicine recommends using National Osteoporosis Foundation (NOF) guidelines in treatment decisions related to osteoporosis. NOF guidelines suggest considering treatment for postmenopausal women and men aged 50 or older presenting with the following: History of hip or vertebral fracture. T-score = -2.5 (DXA) at the femoral neck, total hip, or spine, after appropriate evaluation to exclude secondary causes. Low bone mass (T-score between -1.0 and -2.5 at the femoral neck or spine) AND a 10-year probability of a hip fracture = 3% OR a 10-year probability of a major osteoporosis-related fracture = 20% based on the [place]-adapted WHO algorithm Please note that all treatment decisions require clinical judgment and consideration of individual patient factors, including patient preferences, co-morbidities, previous drug use, risk factors not captured in the FRAX model (e.g., frailty, falls, vitamin D deficiency, increased bone turnover, interval significant decline in bone density) and possible under- or over-estimation of fracture risk by FRAX. Optional alternative screening schedule based on papo Toscano., [facility] July 11, 2011 for patients with osteopenia (based on hip BMD T-score) is as follows: * ??advanced osteopenia (T scores -2.00 to -2.49), BMD testing every year * ??moderate osteopenia (T scores -1.50 to -1.99), BMD testing every 5 years mild osteopenia or normal BMD (T scores -1.50 and higher), BMD testing every 15 years Procedure Note Radha Valdez MD - 06/11/2022 BONE DENSITY (DEXA) Lumbar Spine T-score is 0.6. (SD relative to 20-29 y/o adult) Z-score is 2.8. (SD relative to age matched peers) This is considered normal by WHO criteria. Left Hip T-score is -1.8. Z-score is 0.1. This is considered osteopenia by WHO criteria. Lateral view of the spine shows mild wedging of the T8 vertebral body IMPRESSION: In the absence of trauma, compression fracture of a vertebral body isconsidered presumptive evidence of osteoporosis. The [facility] Department of Internal Medicine recommendsusing National Osteoporosis Foundation (NOF) guidelines in treatment decisions related toosteoporosis. NOF guidelines suggest considering treatment for postmenopausal women and menaged 50 or older presenting with the following: History of hip or vertebral fracture. T-score = -2.5 (DXA) at the femoral neck, total hip, or spine, afterappropriate evaluation to exclude secondary causes. Low bone mass (T-score between -1.0 and -2.5 at the femoral neck or spine)AND a 10-year probability of a hip fracture = 3% OR a 10-year probability of a majorosteoporosis-related fracture = 20% based on the [place]-adapted WHO algorithm Please note that all treatment decisions require clinical judgment andconsideration of individual patient factors, including patient preferences, co- morbidities,previous drug use, risk factors not captured in the FRAX model (e.g., frailty, falls, vitaminD deficiency, increased bone turnover, interval significant decline in bone density) andpossible under- or over-estimation of fracture risk by FRAX. Optional alternative screening schedule based on papo Toscano., [facility] for patients with osteopenia (based on hip BMD T-score) is as follows: * advanced osteopenia (T scores -2.00 to -2.49), BMD testing every year * moderate osteopenia (T scores -1.50 to -1.99), BMD testing every 5years mild osteopenia or normal BMD (T scores -1.50 and higher), BMD testingevery 15 years Pietro Peralta MD IM DXA PROCEDURES Final Res ult * Colonoscopy (01/31/2020) [facility] Colonoscopy abstracted,no interpretation Anatomical Region Laterality Modality Other Historical Provider HEALTH MAINTENANCE Final Result from Last 3 Months or Most Recently Relevant to Health Maintenance Insurance MEDICARE MEDICAID - [place] Advance Directives * Full Code - Confirmed (Latest Code Status on File) Date Activated Date Inactivated Comments 08/20/2024 10:57 AM This code sta tus was ascertained in the following way: Code status discussion: discussion with patient To update the patient's code status, place a code status order. Do not modify or discontinue any currently active code status orders. Care Teams Baccarat Manager Relationship Specialty Start Date End Date Olya Rosen MD [address] [place] [id number] PCP - General Internal Medicine 04/09/22
--- OUTSIDE RECORDS SUMMARY | 2024-09-10 14:33 | XMS_ITS | Encounter Summary ---
Author Organization [facility] Address [address] [place] [address] Care Team Providers Care Tank Worker Name Role Phone Olya Rosen MD Primary Care Provider [phone] Reason for Visit * Reason Comments GERD H.pylori * Consultation (Routine) - Closed Specialty Diagnoses / Procedures Referred By Rojas guy Referred To Contact Gastroenterology Diagnoses Gastroesophageal reflux disease, unspecified whether esophagitis present H. pylori infection Olya Rosen MD 175 [facility] [address] [place] [address] Phone: tel: fax: Gastroenterology - [address] [phone] Phone: tel: fax: Referral ID Status Reason Start Date Expiration Date V isits Requested Visits Authorized [id number] Closed Specialty Services Required 08/20/2024 08/20/2025 1 1 Encounter Details Date Type Department Care Team (Late st Contact Info) Description 08/27/2024 2:40 PM EST Consult Gastroenterology - [place] [address] [phone] Marcia Whyte NP [address] [id number] Dyspepsia (Primary Dx); Tobacco use disorder; Chronic right upper quadrant pain; History of adenomatous polyp of colon Social History Tobacco Use Types Packs/Day Years [...] on file Sexual Orientation Not on file documented as of this encounter Last Filed Vital Signs Vital Sign Reading Time Taken Comments Blood Pressure 118/75 08/27/2024 2:24 PM EST Pulse - - Temperature - - Respiratory Rate - - Oxygen Saturation - - Inhaled Oxygen Concentration - - Weight 63 kg (139 lb) 08/27/2024 2:24 PM EST Height 160 cm (5' 3 ) 08/27/2024 2:24 PM EST Body Mass Index 24.62 08/27/2024 2:24 PM EST documented in this encounter Progress Notes * Marcia Whyte NP - 08/27/2024 2:40 PM EST CHIEF COMPLAINT: Gassiness HPI: Ron Greene is a 73 y.o. old female whose PMH includes cervical disc disease, chronic abdominalpain, chronic pain disorder, closed with compression fracture of thoracic vertebrae, diverticulosis, fibromyalgia, GERD, hypercholesterolemia, vitamin D, osteoporosis, pelvic pressure in female, posit anthony Cologuard, prediabetes, thoracic neuralgia, colon polyps, urinary incontinence and tobacco use disorder was referred by Olya Rosen MD presents to the gastroenterology department today for evaluation of gassiness. Patient reports for the last 3 weeks, she has been experiencing gassiness, dry heaves, nausea and occasional vomiting with food, and discomfort in the stomach. She presented to her PCPs office with similar complaints on 08/20/2024. She was requested to complete H. pylori test-pending results. She was also directed to take pantoprazole. She has not started taking- she is yet to pick it up from the pharmacy. She reports history of chronic right upper quadrant abdominal pain for many years. She wasfound to have gallstones and a cholecystectomy November 2018 which did not elevate pain. She has a history of fibromyalgia and was found to be neuropathic. Today, she denies acid reflux or heartburn, regurgitation, dysphagia, odynophagia, hematemesis, loss of appetite, unintentional weight loss, change in bowel habits, melena hematochezia. She denies alcohol or marijuana use. She reports chronic tobacco use since age 12. She is currently smoking 1 pack/day. Colonoscopy 01/31/2020: 2 diminutive polyps in the descending and ascending colon. 1 diminutive polyp in the sigmoid colon. Two 7 to 10 mm polyps in the sigmoid colon. Diverticulosis in the sigmoid colon. Pathology: Tubular adenoma. No historical EGD. ROS: GENERAL: No malaise, significant weight loss or fever HEENT: No changes in hearing or vision, nose bleeds or swallowing problems NECK: No lumps, goiter, pain or significant neck swelling RESPIRATORY: No cough, wheezing or shortness of breath CARDIOVASCULAR: No chest pain GI: See HPI MUSCULOSKELETAL: Chronic back pain SKIN: No lesions, rash or itching PAST MEDICAL HISTORY: Patient Active Problem List Diagnosis Cervical disc disease Chronic abdominal pain Chronic pain disorder Closed wedge compression fracture of eighth thoracic vertebra (CMS/HCC) Diverticulosis Fibromyalgia GERD (gastroesophageal reflux disease) Hypercholesterolemia Low vitamin D level Osteoporosis Pain in left arm Pelvic pressure in female Positive colorectal cancer screening using Cologuard test Prediabetes Thoracic neuralgia Tobacco use disorder Urinary incontinence Vitamin D insufficiency PAST SURGICAL HISTORY: Past Surgical History: Procedure Laterality Date CHOLECYSTECTOMY 12/30/2018 PROCEDURE: LAPAROSCOPY, CHOLECYSTECTOMY NECK SURGERY PROCEDURE: HISTORICAL NECK SURGERY; COMMENT: per pt report, 1990s for cervical disc SOCIAL HISTORY: Social History Tobacco Use Smoking status: Some Days Current packs/day: 1.00 Types: Cigarettes Smokeless tobacco: Current Substance Use Topics Alcohol use: No Drug use: No FAMILY HISTORY: Family History Problem Relation Name Age of Onset Colon cancer Mother metastatic Other (Other: blood disorder) Father hypercoagulation Other (Other: blood disorder) Sister hypercoagulation Colon cancer Maternal Grandmother Other (Other: supervisor lime cancer) Sister MEDICATIONS: Outpatient Medications Marked as Taking for the 08/27/24 encounter (Consult) with Marcia Whyte NP Medication Sig Dispense Refill ascorbic acid (VITAMIN C) 250 MG chewable tablet Take 1 Tablet by mouth 2 times daily. calcium carbonate-cholecalciferol (Calcium 500 + D) 500 mg-10 mcg (400 unit) per tablet Take 1 Tablet by mouth 2 times daily. pantoprazole (PROTONIX) 40 mg EC tablet Take 1 tablet (40 mg total) by mouth 1 (one) time each day.Do not crush, chew, or split. 90 each 1 solifenacin (VESICARE) 10 mg tablet solifenacin (VESICARE) 5 mg tablet Take 1 tablet (5 mg total) by mouth 1 (one) time each day. tiZANidine (ZANAFLEX) 4 mg tablet Take 1 tablet (4 mg total) by mouth 2 (two) times a day. turmeric root extract 500 mg capsule Take 400 mg by mouth 2 times daily. ALLERGIES: Allergies Allergen Reactions Amoxicillin Aspirin Dermatitis and Rash Duloxetine Duloxetine Hcl Nausea And Vomiting Fentanyl Nitrofurantoin Monohyd/M-Cryst PHYSICAL EXAM: Visit Vitals BP 118/75 Ht 1.6 m (63 ) Wt 63 kg (139 lb) BMI 24.62 kg/m?? Smoking Status Some Days BSA 1.66 m?? APPEARANCE: Alert and in no acute distress EYES: Conjunctiva and sclera normal. MOUTH/THROAT: No erythema, exudates or lesions noted NECK: Neck supple, no adenopathy HEART: RRR with normal S1 and S2 LUNG: Clear to auscultation ABDOMEN: Soft non tender, no ascites, guarding, or rebound. RECTAL: Exam deferred NEURO: Awake, alert and oriented x 3 SKIN: Skin color, texture, turgor normal. LABS: Lab Results Component Value Date WBC 11.0 (H) 08/20/2024 HGB 14.6 08/20/2024 HCT 46.4 08/20/2024 MCV 96.1 08/20/2024 PLT 327 08/20/2024 Lab Results Component Value Date ALT 44 08/20/2024 AST 31 08/20/2024 ALKPHOS 103 08/20/2024 BILITOT 0.5 08/20/2024 IMAGING: No results found for this or any previous visit from the past 365 days. IMPRESSION: 1. Dyspepsia 2. Tobacco use disorder 3. Chronic right upper quadrant pain 4. History of adenomatous polyp of colon PLAN: Ron Greene is a 73 y.o. old female whose PMH includes cervical disc disease, chronic abdominalpain, chronic pain disorder, closed with compression fracture of thoracic vertebrae, diverticulosis, fibromyalgia, GERD, hypercholesterolemia, vitamin D, osteoporosis, pelvic pressure in female, posit anthony Cologuard, prediabetes, thoracic neuralgia, colon polyps, urinary incontinence and tobacco use disorder presents for evaluation of gassiness. 1. Dyspepsia: She was encouraged to eliminate triggers. Eliminate gas producing foods from diet. May use Gas-X orsimethicone as needed. H. pylori test completed pending results. She would like to wait for H. pylori test results before proceeding with EGD. If H. pylori is negative, will schedule diagnostic EGD for dyspepsia. Also, consider EGD with biopsy to rule out Dinero's given history of chronic tobacco. 2. Tobacco use disorder: Chronic tobacco use since age 12. Currently smoking 1 pack/day. Tobacco use cessation strongly encouraged. She verbalizes understanding. 3. Chronic right upper quadrant pain: This is chronic for many years. Mild discomfort on exam. May use a heating pad as needed. 4. History of adenomatous polyp of colon: Colonoscopy 01/31/2020: 2 diminutive polyps in the descending and ascending colon. 1 diminutive polyp in the sigmoid colon. Two 7 to 10 mm polyps in the sigmoid colon. Diverticulosis in the sigmoid colon. Pathology: Tubular adenoma. I will schedule surveillance colonoscopy to be completed with EGD for dyspepsia. Patient understands the risks of EGD/colonoscopy include infection, bleeding and/or bowel perforation with its own emergent surgery and complication. Polypectomy and/or tissue biopsy may be performedduring the procedure. Follow-up after EGD/colonoscopy or sooner if needed. Patient agrees with the above plan and understands the need to follow up as indicated. Please note, this note may have been created in part by using [employer] dictation software, and therefore, it may contain typographical and/or grammatical errors inherent in a voice recognition software program I would like to thank Olya Rosen MD for the opportunity to partake in the patient's care. No orders of the defined types were placed in this encounter. AMB REFERRAL TO GASTROENTEROLOGY documented in this encounter Plan of Treatment Upcoming Encounters Date Type Department Care Team (Late st Contact Info) Description 09/16/2024 8:45 AM EDT Office Visit Urogynecology [address] [phone] Karli Sinha MD [address] [place] [address] [address] [place] [address] 02/17/2025 9:00 AM EDT Office Visit Internal Medicine - [place] 175 [facility] [address] [place] [phone] Olya Rosen MD 175 [facility] [address] [place] [address] documented as of this encounter Visit Diagnoses Diagnosis Dyspepsia- Primary Dyspepsia and other specified disorders of function of stomach Tobacco use disorder Chronic right upper quadrant pain Abdominal pain, right upper quadrant History of adenomatous polyp of colon Personal history of colonic polyps documented in this encounter Historical Medications * This list may reflect changes made after this encounter. tiZANidine (ZANAFLEX) 4 mg tablet Take 1 tablet (4 mg total) by mouth 2 (two) times a day. 01/27/2024 solifenacin (VESICARE) 5 mg tablet Take 1 tablet (5 mg total) by mouth 1 (one) time each day. 12/28/2023 solifenacin (VESICARE) 10 mg tablet 08/26/2024 added in this encounter Orders Outpatient Referral Count Last Ordered Date Fir st Ordered Date AMB REFERRAL TO GASTROENTEROLOGY 1 08/28/19 25 documented in this encounter Additional Health Concerns Assessment Noted Time PHQ-9 Depression Total Score: 0 08/20/19 25 10:50 AM EST A fall risk assessment has been complete d for the patient 08/20/2024 10:28 AM EST documented as of this encounter Care Teams Tank Worker Relationship Specialty Start Date End Date Olya Rosen MD [address] [place] [id number] PCP - General Internal Medicine 04/09/22 documented as of this encounter
--- OUTSIDE RECORDS SUMMARY | 2024-09-10 14:33 | XMS_ITS | Encounter Summary ---
Author Organization [facility] Address [address] [place] [address] Care Team Providers Care Assistant Store Leader Name Role Phone Olya Rosen MD Primary Care Provider [phone] Reason for Referral * Consultation (Routine) - Authorized Specialty Diagnoses / Procedures Referred By Rojas guy Referred To Contact Thoracic Surgery Diagnoses Tobacco use disorder Olya Rosen MD [address] [address] Phone: tel: fax: Lung Screening Program [facility] [address] [address] Phone: tel: fax: Referral ID Status Reason Start Date Expiration Date Visits Requested Visits Authorized [id number] Authorized Specialty Services Required 08/20/2024 08/20/2025 1 1 * Consultation (Routine) - Closed Specialty Diagnoses / Procedures Referred By Rojas guy Referred To Contact Gastroenterology Diagnoses Gastroesophageal reflux disease, unspecified whether esophagitis present H. pylori infection Olya Rosen MD 175 [facility] 200 [place] [address] Phone: tel: fax: Gastroenterology - [place] 175 [facility] 175 [facility] 200 [place] [address] Phone: tel: fax: Referral ID Status Reason Start Date Expiration Date V isits Requested Visits Authorized [id number] Closed Specialty Services Required 08/20/2024 08/20/2025 1 1 Reason for Visit * Reason Comments Medicare Annual Wellness Visit Initial Encounter Details Date Type Department Care Team ([facility] st Contact Info) Description 08/20/2024 10:00 AM EST Office Visit Internal Medicine - [place] 175 [facility] [address] [place] [id number] Olya Rosen MD 175 [facility] 200 [place] [address] Routine general medical examination at a health care facility (Primary Dx); Medicare annual wellness visit, subsequent; Osteoporosis, unspecified osteoporosis type, unspecified pathological fracture presence; Hypercholesterolemia; Chronic abdominal pain; Fibromyalgia; Low vitamin D level; Prediabetes; Tobacco use disorder; Gastroesophageal reflux disease, unspecified whether esophagitis present; H. pylori infection; Other fatigue; Vitamin D deficiency; UTI symptoms Social History Tobacco Use Types Packs/Day Years [...] Sign Reading Time Taken Comments Blood Pressure 138/72 08/20/2024 10:33 AM EST Pulse 97 08/20/2024 10:33 AM EST Temperature - - Respiratory Rate - - Oxygen Saturation 98% 08/20/2024 10:33 AM EST Inhaled Oxygen Concentration - - Weight 62.6 kg (138 lb) 08/20/2024 10:33 AM EST Height - - Body Mass Index 25.65 02/19/2024 10:42 AM EDT documented in this encounter Patient Instructions * Attachments The following attachments cannot be sent through Care Everywhere. * Healthy Eating: At Home: Quick List (Hong Konger) * Physical Activity: Walking (Hong Konger) * Advance Directives (H[place] Konger) * Advance Care Planning (H[place] Konger) documented in this encounter Ordered Prescriptions Prescription Sig Dispense Quantity Refills Last Filled Start Date End Date pantoprazole (PROTONIX) 40 mg EC tablet Take 1 tablet (40 mg total) by mouth 1 (one) time each day. Do not crush, chew, or split. 90 each 1 08/20/2024 02/16/2025 documented in this encounter Progress Notes * Olya Rosen MD - 08/20/2024 10:00 AM EST Annual Wellness Visit Health Maintenance Due Topic Date Due ??? DTaP,Tdap,and Td Vaccines (1 - Tdap) Never done ??? Pneumococcal Vaccine: 50+ Years (1 of 2 - PCV) Never done ??? Zoster Vaccines (1 of 2) Never done ??? Hepatitis C Screening Never done ??? Social Influencers of Health Screening Never done ??? Colorectal Cancer Screening: Colonoscopy 01/30/2023 ??? RSV Immunization Patients 60+ Years Old (1 - 1-dose 75+ series) Never done ??? Influenza Vaccine (1) Never done ??? COVID-19 Vaccine (2023- season) 2024 ??? Depression Screening 08/20/2024 ??? Medicare Annual Wellness Visit 08/20/2024 Adult vaccinations: CDC Recommendations Resources for Educating Adult Patients about Vaccines CDC * Olya Rosen MD - 08/20/2024 10:00 AM EST Dayana Greene is a 73 y.o. female who presents for a Subsequent Medicare Annual Wellness Visit. HPI History of Present Illness Patient declined to use the epic copilot. Patient is a 73-year-old lady with following past medical history came today for annual wellness visit and follow-up of the following complaints. Hyperlipidemia: Patient hyperlipidemia currently not on any medication. Problem currently. Abdominal pain: Patient complain of right upper quadrant abdominal pain. Declined any nausea vomiting. Patient complained mostly the pain after eating food. UTI symptom: Patient complain of frequency of the urine and burning sensation and pain between urine. Patient also on calcium and vitamin D supplementation. Current Providers List: Patient Care Team: Olya Rosen MD as PCP - General (Internal Medicine) Risk Assessments Body mass index is 25.65 kg/m??. The BMI is in the acceptable range. Calculated fall risk level: low Depression Risk Score: 0 Depression Severity: None-minimal Proposed Treatment Actions: None Hearing Whisper Test: PASS Vision Screening Was a Snellen eye exam done?: Yes Mini Cog Clock Drawing Test: 2 Word Recall: 3 Mini Cog Score: 5 Mini Cog Results: Negative screen for dementia STEADI Fall Risk Have you fallen in the past year? no Feels unsteady when standing or walking? no Are you worried about falling? no Activity of Daily Living (ADLs) Do you need help from others for your personal care such as eating, dressing, toileting, or gettingaround the house?: No Do you experience incontinence?: No Instrumental Activities of Daily Living (IADLs) Do you need help with using the telephone?: No Do you need help with shopping?: No Do you need help with food preparation?: No Do you need help with housekeeping?: No Do you need help with laundry?: No Do you need help handling finances?: No Do you drive?: Yes Do you manage your own medication?: Yes, independent Health Status In general, the patient reports health as: fair In general, patient reports life as: good Patient reports sleep pattern as: sleeping well Have you seen a dentist in the last year?: Yes Physical Activity Do you exercise for about 20 minutes or more three days a week?: Yes, most of the time Nutritional Assessment Do you eat a balanced diet including daily serving of fruits, vegetables, and whole grains?: Yes, always Depression Screening (PHQ2) Will the patient answer the depression risk questions?: Y Over the last 2 weeks, how often have you been bothered by little interest or pleasure in doing things?: 0 Over the last 2 weeks, how often have you been bothered by feeling down, depressed, or hopeless?: 0 Depression Risk: 0 Additional Depression Screening (PHQ9) Depression Risk Score NEW: 0 Opioid Risk Tool No data recorded [facility] Status ([facility]) No data recorded Comprehensive Medical and Social History Patient Active Problem List Diagnosis Cervical disc disease Chronic abdominal pain Chronic pain disorder Closed wedge compression fracture of eighth thoracic vertebra (CMS/HCC) Diverticulosis Fibromyalgia GERD (gastroesophageal reflux disease) Hypercholesterolemia Low vitamin D level Osteoporosis Pain in left arm Pelvic pressure in female Positive colorectal cancer screening using Cologuard test Prediabetes Thoracic neuralgia Tobacco use disorder Urinary incontinence Vitamin D insufficiency No past medical history on file. Family History Problem Relation Name Age of Onset Colon cancer Mother metastatic Other (Other: blood disorder) Father hypercoagulation Other (Other: blood disorder) Sister hypercoagulation Colon cancer Maternal Grandmother Other (Other: rail technician cancer) Sister reports that she has been smoking cigarettes. She uses smokeless tobacco. She reports that she doesnot drink alcohol and does not use drugs. Past Surgical History: Procedure Laterality Date CHOLECYSTECTOMY 12/30/2018 PROCEDURE: LAPAROSCOPY, CHOLECYSTECTOMY NECK SURGERY PROCEDURE: HISTORICAL NECK SURGERY; COMMENT: per pt report, 1990s for cervical disc Allergies Allergen Reactions Amoxicillin Aspirin Dermatitis and Rash Duloxetine Duloxetine Hcl Nausea And Vomiting Fentanyl Nitrofurantoin Monohyd/M-Cryst Current Outpatient Medications Medication Sig Dispense Refill ascorbic acid (VITAMIN [...] crush, chew, or split. 90 each 1 turmeric root extract 500 mg capsule Take 400 mg by mouth 2 times daily. No current facility-administered medications for this visit. Review of Systems As per HPI Objective: Vitals: 08/20/24 1033 BP: 138/72 Pulse: 97 SpO2: 98% Weight: 62.6 kg (138 lb) Physical Exam HENT: Head: Normocephalic. Right Ear: External ear normal. Left Ear: External ear normal. Nose: Nose normal. Mouth/Throat: Mouth: Mucous membranes are moist. Eyes: Conjunctiva/sclera: Conjunctivae normal. Cardiovascular: Rate and Rhythm: Normal rate and regular rhythm. Heart sounds: Normal heart sounds. Pulmonary: Effort: Pulmonary effort is normal. Abdominal: General: Bowel sounds are normal. Palpations: Abdomen is soft. Tenderness: There is abdominal tenderness. Musculoskeletal: General: Normal range of motion. Cervical back: Normal range of motion and neck supple. Skin: General: Skin is warm. Capillary Refill: Capillary refill takes less than 2 seconds. Neurological: General: No focal deficit present. Mental Status: She is alert. Physical Exam Results Assessment/Plan: Plan Health Maintenance Topic Date Due DTaP,Tdap,and Td Vaccines (1 - Tdap) Never done Pneumococcal Vaccine: 50+ Years (1 of 2 - PCV) Never done Zoster Vaccines (1 of 2) Never done Hepatitis C Screening Never done Colorectal Cancer Screening: Colonoscopy 01/30/2023 RSV Immunization Patients 60+ Years Old (1 - 1-dose 75+ series) Never done Influenza Vaccine (1) Never done COVID-19 Vaccine (3 - season) 2024 Medicare Annual Wellness Visit 08/20/2024 Lung Cancer Screening (Low Dose CT) 11/04/2024 Falls Risk Assessment 08/20/2025 Depression Screening 08/20/2025 Social Influencers of Health Screening 08/20/2025 Cholesterol Screening (Lipid Panel) 08/20/2029 Osteoporosis Screening (Bone Density Screening) 03/07/2030 HIB Vaccines Aged Out Hepatitis B Vaccines Aged Out IPV Vaccines Aged Out Hepatitis A Vaccines Aged Out MMR Vaccines Aged Out Varicella Vaccines Aged Out Meningococcal ACWY Vaccine Aged Out Meningococcal B Vacine Aged Out HPV Vaccines Aged Out RSV Immunization Patients Under 20 months Aged Out Code status: Full Code - Confirmed Preventative recommendations were reviewed and discussed with the patient. During the visit we discussed: Code status was discussed. Advanced Directives: has an advanced directive - a copy has been provided Patient Instructions (the written plan) were given to the patient. Routine general medical examination at a health care facility (Primary) Medicare annual wellness visit, subsequent - CBC and differential; Future - Hemoglobin A1c; Future - Vitamin B12; Future - Comprehensive metabolic panel; Future - Lipid panel with reflex to direct LDL; Future - Vitamin D 25 hydroxy; Future - Thyroid stimulating hormone with reflex to free t4 and free t3; Future Osteoporosis, unspecified osteoporosis type, unspecified pathological fracture presence Hypercholesterolemia - Lipid panel with reflex to direct LDL; Future Chronic abdominal pain Fibromyalgia Low vitamin D level Prediabetes - Hemoglobin A1c; Future Tobacco use disorder - Ambulatory referral to Thoracic Surgery; Future Gastroesophageal reflux disease, unspecified whether esophagitis present - Ambulatory referral to Gastroenterology; Future H. pylori infection - Helicobacter pylori antigen, stool; Future - Ambulatory referral to Gastroenterology; Future Other fatigue - CBC and differential; Future - Vitamin B12; Future - Thyroid stimulating hormone with reflex to free t4 and free t3; Future Vitamin D deficiency - Vitamin D 25 hydroxy; Future UTI symptoms - Urinalysis with reflex microscopic and culture; Future Other orders - pantoprazole (PROTONIX) 40 mg EC tablet; Take 1 tablet (40 mg total) by mouth 1 (one) time each day. Do not crush, chew, or split. Dispense: 90 each; Refill: 1 - Full code - Confirmed Assessment & Plan Medicare annual wellness visit: All routine labs and screening test evaluated and ordered for the patient. Patient declined for any vaccine today. UTI symptom: Counseling done. UA ordered for the patient. Left upper quadrant abdominal pain: Pantoprazole ordered. Counseling done. H. pylori test ordered for the patient. Also refer patient to the gastroenterology for further management. Osteoporosis: Advised patient to continue calcium and vitamin D supplementation. Patient does not want any medication. Vitamin D deficiency: Advised to continue vitamin D supplementation regularly. Prediabetes: Patient last A1c 5.9. Counseling done. Instruction given. Also repeat A1c ordered for the patient. Hyperlipidemia: Advised to do low-fat diet. Counseling done. Smoking: Patient is a current everyday smoker. Declined any counseling or any medication. Patient declined for verbal consent from Ron Greene prior to the recording. I have advised Ron Greene that she may refuse the recording and require the recording to be turned off at any time during this encounter. So recording did not start during the visit. Follow up in 6 months (on 02/17/2025) for Schedule F/U. documented in this encounter Plan of Treatment Upcoming Encounters Date Type Department Care Team (Late st Contact Info) Description 09/16/2024 8:45 AM EDT Office Visit Urogynecology [address] [address] Karli Sinha MD [address] [place] [address] [address] [place] [address] 02/17/2025 9:00 AM EDT Office Visit Internal Medicine - [place] 175 [facility] [address] [place] [address] Olya Rosen MD 175 [facility] [address] [place] [address] Scheduled Referrals Name Type Priority Associated Diagnoses Order Schedule Ambulatory referral to Gastroenterology Outpatient Referral Routine Gastroesophageal reflux disease, unspecified whether esophagitis present H. pylori infection Expected: 09/03/2024, Expires: 08/20/2025 Ambulatory referral to Thoracic Surgery Outpatient Referral Routine Tobacco use disorder 1 Occurrences starting 08/20/2024 until 08/20/2025 documented as of this encounter Results * Helicobacter pylori antigen, stool (08/27/2024 11:47 AM EST) Helicobacter Pylori Ag Not detected Not detected 08/31/2024 2:37 PM EDT [facility] Comment: This test was performed at [facility] using a chemiluminescent immunoassay intended for the [...] Food and Drug Administration. Test performed at [facility], [address] , [place], [place] ??[address] ? [phone] Michell Hadley MD, PhD - Green Material Value Added Assessor Stool Rectum structure / Unknown Non-blood Collection / Unknown 08/27/2024 11:47 AM EST 08/27/2024 11:47 AM EST Olya Rosen MD LAB BODY FLUIDS AND STOOLS ORDER GALO Final Result JAIME POLANCO [address] [place] [address] * Thyroid stimulating hormone with reflex to free t4 and free t3 (08/20/2024 11:41 AM EST) Pathologist [facility] TSH 2.40 0.40 - 4.00 mcIU/mL LAB CHEMISTRY METHOD 08/20/2024 7:46 PM EST [facility] Blood Venous blood specimen / Unknown Venipuncture / Unknown 08/20/2024 11:41 AM EST 08/20/2024 11:41 AM EST Olya Rosen MD LAB BLOOD ORDERABLES Final Resul t Performing Organization Address [facility] de Phone Number [facility] [address] [place] [address], [place] [phone] * (ABNORMAL) Vitamin D 25 hydroxy (08/20/2024 11:41 AM EST) Pathologist [facility] Vit D, 25-Hydroxy 28.0(L) 30.0 - 80.0 ng/mL LAB CHEMISTRY METHOD 08/20/2024 7:46 PM EST [facility] Blood Venous blood specimen / Unknown Venipuncture / Unknown 08/20/2024 11:41 AM EST 08/20/2024 11:41 AM EST Olya Rosen MD LAB BLOOD ORDERABLES Final Resul t Performing Organization Address City/[facility]/ZIP Co de Phone Number [facility] [address] [place] [address], [place] [phone] * (ABNORMAL) Lipid panel with reflex to direct LDL (08/20/2024 11:41 AM EST) Cholesterol 254(H) 0 - 200 mg/dL LAB CHEMISTRY METHOD 08/20/2024 8:07 PM [facility] Triglycerides 295(H) 0 - 150 mg/dL LAB CHEMISTRY METHOD 08/20/2024 8:07 PM [facility] HDL 44 >=40 mg/dL LAB CHEMISTRY METHOD 08/20/2024 8:07 PM [facility] LDL Calculated 151(H) 0 - 100 mg/dL LAB CHEMISTRY METHOD 08/20/2024 8:07 PM [facility] VLDL Cholesterol Lit 59 mg/dL LAB CHEMISTRY METHOD 08/20/2024 8:07 PM [facility] Non HDL Chol. (LDL+VLDL) 210(H) <145 mg/dL LAB CHEMISTRY METHOD 08/20/2024 8:07 PM [facility] Chol/HDL Ratio 5.8(H) 0.0 - 4.4 LAB CHEMISTRY METHOD 08/20/2024 8:07 PM [facility] Blood Venous blood specimen / Unknown Venipuncture / Unknown 08/20/2024 11:41 AM EST 08/20/2024 11:41 AM EST Olya Rosen MD LAB BLOOD ORDERABLES Final Resul t [facility] [address] [place] [address], [place] [phone] * (ABNORMAL) Comprehensive metabolic panel (08/20/2024 11:41 AM EST) Pathologist [facility] Sodium 139 133 - 145 mmol/L LAB CHEMISTRY METHOD 08/20/2024 8:07 PM [facility] Potassium 4.3 3.5 - 5.5 mmol/L LAB CHEMISTRY METHOD 08/20/2024 8:07 PM [facility] Chloride 103 96 - 110 mmol/L LAB CHEMISTRY METHOD 08/20/2024 8:07 PM [facility] CO2 29 21 - 32 mmol/L LAB CHEMISTRY METHOD 08/20/2024 8:07 PM [facility] Anion Gap 7 3 - 11 LAB CHEMISTRY METHOD 08/20/2024 8:07 PM [facility] Glucose 132(H) 70 - 100 mg/dL LAB CHEMISTRY METHOD 08/20/2024 8:07 PM [facility] BUN 18 5 - 25 mg/dL LAB CHEMISTRY METHOD 08/20/2024 8:07 PM [facility] Creatinine 0.82 0.50 - 1.10 mg/dL LAB CHEMISTRY METHOD 08/20/2024 8:07 PM [facility] eGFR 75 >=60 mL/min/1. 73m2 LAB CHEMISTRY METHOD 08/20/2024 8:07 PM [facility] Comment:Calculation based on the??Chronic Kidney Disease Epidemiology Collaboration (CKD-EPI) equation refit??without adjustment for race. BUN/Creatinine Ratio 22.0 LAB CHEMISTRY METHOD 08/20/2024 8:07 PM [facility] Calcium 10.1 8.5 - 10.5 mg/dL LAB CHEMISTRY METHOD 08/20/2024 8:07 PM [facility] AST (SGOT) 31 10 - 42 unit/L LAB CHEMISTRY METHOD 08/20/2024 8:07 PM [facility] ALT (SGPT) 44 10 - 60 unit/L LAB CHEMISTRY METHOD 08/20/2024 8:07 PM [facility] Alkaline Phosphatase 103 42 - 121 unit/L LAB CHEMISTRY METHOD 08/20/2024 8:07 PM [facility] Total Protein 7.2 6.0 - 8.0 g/dL LAB CHEMISTRY METHOD 08/20/2024 8:07 PM EST [facility] Albumin 4.2 3.2 - 5.0 g/dL LAB CHEMISTRY METHOD 08/20/2024 8:07 PM [facility] Total Bilirubin 0.5 0.0 - 1.4 mg/dL LAB CHEMISTRY METHOD 08/20/2024 8:07 PM [facility] Blood Venous blood specimen / Unknown Venipuncture / Unknown 08/20/2024 11:41 AM EST 08/20/2024 11:41 AM EST Olya Rosen MD LAB BLOOD ORDERABLES Final Resul t Performing Organization Address City/[facility]/ZIP Co de Phone Number [facility] [address] [place] [address], [place] [phone] * Vitamin B12 (08/20/2024 11:41 AM EST) [facility] Vitamin B-12 546 250 - 900 pcg/mL LAB CHEMISTRY METHOD 08/20/2024 8:07 PM [facility] Blood Venous blood specimen / Unknown Venipuncture / Unknown 08/20/2024 11:41 AM EST 08/20/2024 11:41 AM EST Olya Rosen MD LAB BLOOD ORDERABLES Final Resul t [facility] [address] [place] [address], [place] [phone] * Hemoglobin A1c (08/20/2024 11:41 AM EST) [facility] Hemoglobin A1C 6.3 <6.5 % LAB CHEMISTRY METHOD 08/23/2024 9:36 PM [facility] Mean Bld Glu Estim. 134 mg/dL LAB CHEMISTRY METHOD 08/23/2024 9:36 PM [facility] Blood Venous blood specimen / Unknown Venipuncture / Unknown 08/20/2024 11:41 AM EST 08/20/2024 11:41 AM EST Olya Rosen MD LAB BLOOD ORDERABLES Final Resul t [facility] [address] [place] [address], documented in this encounter Visit Diagnoses Diagnosis Routine general medical examination at a health care facility- Primary Medicare annual wellness visit, subsequent Osteoporosis, unspecified osteoporosis type, unspecified pathological fracture presence Hypercholesterolemia Pure hypercholesterolemia Chronic abdominal pain Abdominal pain, unspecified site Fibromyalgia Unspecified myalgia and myositis Low vitamin D level Prediabetes Other abnormal glucose Tobacco use disorder Gastroesophageal reflux disease, unspecified whether esophagitis present H. pylori infection Helicobacter pylori (H. pylori) Other fatigue Vitamin D deficiency UTI symptoms documented in this encounter Orders Code Status Count Last Ordered Date First Orde red Date FULL CODE CONFIRMED 1 08/20/2024 documented in this encounter Additional Health Concerns Assessment Noted Time PHQ-9 Depression Total Score: 0 08/20/19 25 10:50 AM EST A fall risk assessment has been complete d for the patient 08/20/2024 10:28 AM EST documented as of this encounter Care Teams Assistant Store Leader Relationship Specialty Start Date End Date Olya Rosen MD [address] [place] [address] PCP - General Internal Medicine 04/09/22 documented as of this encounter
--- OUTSIDE RECORDS SUMMARY | 2024-09-10 14:33 | XMS_ITS | Encounter Summary ---
Author Organization [facility] Address [address] [place] [address] Care Team Providers Care Desk Maker Name Role Phone Olya Rosen MD Primary Care Provider [phone] Encounter Details Date Type Department Care Team (Late Contact Info) Description 08/27/2024 Telephone Gastroenterology - [place] 175 [facility] 175 [facility] [address] [place] [address] Marcia Whyte NP 175 [facility] [address] [place] [address] Social History Tobacco Use Types Packs/Day Years [...] on file documented as of this encounter Progress Notes * Julien Ayala - 08/27/2024 3:36 PM EST SCHEDULED * Marcia Whyte NP - 08/27/2024 3:28 PM EST Please schedule surveillance colonoscopy for colon polyps next available. Thank you. documented in this encounter Plan of Treatment Upcoming Encounters Date Type Department Care Team (Late st Contact Info) Description 09/16/2024 8:45 AM EDT Office Visit Urogynecology - [place] [address] [place] [address] Karli Sinha MD [address] [place] [address] [address] [place] [address] 02/17/2025 9:00 AM EDT Office Visit Internal Medicine - [place] 175 [facility] [address] [place] [address] Olya Rosen MD 175 [facility] 200 [place] [address] documented as of this encounter Visit Diagnoses Not on filedocumented in this encounter Additional Health Concerns Assessment Noted Time PHQ-9 Depression Total Score: 0 08/20/19 25 10:50 AM EST A fall risk assessment has been complete d for the patient 08/20/2024 10:28 AM EST documented as of this encounter Care Teams Desk Maker Relationship Specialty Start Date End Date Olya Rosen MD [address] [place] [address] PCP - General Internal Medicine 04/09/22 documented as of this encounter
== END 2024-09-10 11:57 | disposition home or self-care (01) ==
LOC: HO.MAMMO 11:56
PROVIDERS: PCP Student in an Organized Health Care Education/Training Program; Visit Provider Student in an Organized Health Care Education/Training Program
DX: Z12.31 Encounter for screening mammogram for malignant neoplasm of breast (principal)
CPT/HCPCS: 77063; 77067

== ENCOUNTER → 2024-09-10 12:00 | Outpatient (BNV) | payer MEDICARE, MEDICAID, SELFPAY | PROVIDERS: PCP Student in an Organized Health Care Education/Training Program; Visit Provider Internal Medicine | DX: Z12.31 Encounter for screening mammogram for malignant neoplasm of breast (principal) | CPT/HCPCS: 77063; 77067 ==